=== PATIENT | female | born 1960 | race Hispanic/Latino ===

== ENCOUNTER 2024-12-25 17:12 | Emergency (ER) | payer SELFPAY ==
[~2024-12-25 17:12] MED LIST: Iopamidol 300 61% 100 ML VIAL FS ONE
[2024-12-25] MEDS ORDERED: cloNIDine 0.1 MG TAB ONE (18:44)
[2024-12-25 18:51] LABS: #Basophils Less than 0.03 10x3/uL (0.0-0.2); #Eosinophils Less than 0.03 10x3/uL (0.0-0.5); #Monocytes 0.28 10x3/uL (0.0-1.1); #Neutrophils 4.86 10x3/uL (1.5-8.4); %Basophils 0.2 % (0.0-2.0); %Eosinophils 0.2 % (0.0-6.0); %Lymphocytes 20.1 % (18.0-47.0); %Monocytes 4.3 % (0.0-10.0); %Neutrophils 74.9 % (40.0-75.0); Hematocrit 44.1 % (34.9-44.5); Hemoglobin 15.3 g/dL (12.0-15.5); Mean Corpuscular Hemoglobin 30.8 pg (27.0-33.0); Mean Corpuscular Volume 88.7 fL (81.6-98.3); Platelet Count 311 10x3/uL (150-450); Red Blood Cell (RBC) Count 4.97 10x6/uL (3.90-5.03); White Blood Cell (WBC) Count 6.48 10x3/uL (3.5-10.5)
[2024-12-25 19:03] LABS: ALT (SGPT) 8 U/L (Less than 34); AST (SGOT) 22 U/L (11-34); Albumin 4.6 g/dL (3.1-4.5); Alkaline Phosphatase 128 U/L (40-110); Anion Gap 14 mmol/L (10-20); BUN (Urea Nitrogen) 12 mg/dL (9.8-20.1); Bilirubin, Total 0.6 mg/dL (0.3-1.2); Calc. Creatinine Clearance 0 mL/min (70-130); Calcium 9.8 mg/dL (7.8-10.44); Carbon Dioxide 25 mmol/L (23-31); Chloride 102 mmol/L (98-107); Globulin 3.0 g/dL (2.4-3.5); Glucose 119 mg/dL (80-115); Lipase 11 U/L (8-78); Potassium 4.2 mmol/L (3.5-5.1); Sodium 137 mmol/L (136-145)
[2024-12-25 19:06] LABS: Troponin I Less than 0.010 ng/mL (< 0.028)
[2024-12-25] MEDS ORDERED: diphenhydrAMINE 50 MG/ML VIAL ONE (20:25)
[2024-12-25] MEDS ORDERED: Ketorolac Tromethamine 30 MG (1 mL) VIAL ONE (20:25)
[2024-12-25] MEDS ORDERED: Acetaminophen 500 MG TAB ONE (20:26)
[2024-12-25 20:56] LABS: Glucose, Urine (Dipstick) Normal (Negative); Leukocyte Negative (Negative); Protein, Urine (Dipstick) Negative (Neg-Trace); Specific Gravity, Urine 1.010 (1.005-1.030)
[2024-12-25 21:06] LABS: CAUTI Indications for Culture Pelvic or flank pain
[2024-12-25 21:07] LABS: Bacteria/HPF None Seen HPF (None Seen); RBC/HPF 0-3 HPF (0-3); WBC/HPF 0-3 HPF (0-3)
[2024-12-25 21:08] LABS: Urine Culture Reflex No No
== END 2024-12-25 21:44 | disposition home or self-care (01) ==
LOC: CSHERS 17:12
DX: K59.00 Constipation, unspecified (principal); R42 Dizziness and giddiness; R51.9 Headache, unspecified; I10 Essential (primary) hypertension; R29.708 NIHSS score 8; Z79.899 Other long term (current) drug therapy
CPT/HCPCS: 70450; 71045; 74177; 80053; 81001; 83605; 83690; 84484; 85025; 93005; 96374; 96375; J1200; J1885; Q9967